=== PATIENT | female | born 1965 | race Caucasian/White ===

== ENCOUNTER 2021-05-14 17:51 | Emergency (ER) | payer OTHER ==
[2021-05-14 18:28] VITALS: BP 136/85; PULSE 84; TEMP 98.1; BMI 27.4
[2021-05-15 16:11] LABS: SARS-CoV-2 NAA Detected (Not Detected)
== END 2021-05-14 21:08 | disposition home or self-care (01) ==
LOC: JER 17:51
DX: U07.1 COVID-19 (principal)
CPT/HCPCS: 99283-25; C9803; U0003; U0005

== ENCOUNTER 2024-09-25 05:51 | Day surgery (SDC) | payer OTHER ==
[2024-09-24 14:11] VITALS: BMI 29.5
[2024-09-25 09:21] VITALS: TEMP 98
[2024-09-25 09:44] VITALS: BP 115/65; PULSE 66; RESP 16
== END 2024-09-25 09:50 | disposition home or self-care (01) ==
LOC: JASU-ENDO 05:51
PROVIDERS: ATTEND Internal Medicine Gastroenterology
PROC: 0DB78ZX Excision of Stomach, Pylorus, Via Natural or Artificial Opening Endoscopic, Diagnostic (ICD-10-PCS; 2024-09-25)
PROC: 0DB68ZX Excision of Stomach, Via Natural or Artificial Opening Endoscopic, Diagnostic (ICD-10-PCS; principal; 2024-09-25 08:30)
DX: K21.9 Gastro-esophageal reflux disease without esophagitis (principal)
CPT/HCPCS: 88305-TC; 88342-TC